=== PATIENT | female | born 1985 | race Caucasian/White ===

== ENCOUNTER 2016-12-13 06:28 | Emergency (ER) | payer OTHER ==
--- NOTE | 2016-12-13 06:59 | ED ORDER SUMMARY ---
..... Patient: GAEL LUI OrderSheet [facility] VisitID: [id number] [address] [place] [address] 31y, F Registration Date/Time: 12/13/2016 ORDER SHEET Weight: 77.1 kg Allergies: No Known Drug Allergy GENERAL ORDERS: MEDICATION ORDERS: Valium PO 5 mg (NOW) (06:56 12/13/2016 Michael ALFONSO) (7:00 [facility]) Percocet PO 5/325 mg 1 po (NOW) (06:56 12/13/2016 Michael ALFONSO) (7:00 [facility]) IV FLUIDS: ORDER SHEET NOTES: [Electronically signed by Deirdre Wheeler (07:05 12/13/2016)] [Electronically signed by Matt Foster MD (07:08 12/13/2016)] [Electronically locked/signed by Deirdre Wheeler (07:05 12/13/2016)]
--- NOTE | 2016-12-13 06:59 | ED CLINICAL REPORT ---
Clinical Report - Physicians/Mid Levels [facility] [address] [place] [address] 12/13/2016 6:29 Patient: GAEL MORFIN Time Seen: 06:47. Arrived- By private vehicle. Historian- patient. HISTORY OF PRESENT ILLNESS Chief Complaint: NECK PAIN. Onset- at 5 PM; Ms Morfin turned her neck at home and felt sudden pain and it is still present. It was abrupt in onset. It is described as being severe and in the area of the right side of the cervical spine and radiating (Radiates to head and R shoulder). The quality is noted to be "pain". No bladder dysfunction, bowel dysfunction, sensory loss or motor loss. Additional history - Much worse with neck and arm movement. Patient denies an injury. No other injury. Similar symptoms previously: Several times. ( Other episodes were milder). REVIEW OF SYSTEMS The patient has had a headache. No sore throat, cough, difficulty breathing, chest pain or abdominal pain. No nausea, vomiting, diarrhea or difficulty with urination. PAST HISTORY Tetanus UTD PCP: Jerry Glass Ops: Breast augmentation Hosp: Childbirth Illness: None. Medications: None. Allergies: No Known Drug Allergy. SOCIAL HISTORY Current every day smoker. ADDITIONAL NOTES The nursing notes have been reviewed. PHYSICAL EXAM Vital Signs: 12/13/2016 06:39 BP: 116/73. HR: 73. RR: 16. O2 saturation: 100%. Temp: 97.6 F. Appearance: Alert. Patient in moderate distress. Neck: Pain in the neck upon movement. Muscle spasm of the neck. No vertebral tenderness. Soft tissue tenderness (Especially R trapezius). CVS: Normal heart rate and rhythm. Heart sounds normal. Respiratory: No respiratory distress. Breath sounds normal. Abdomen: Normal inspection. Soft and nontender. Neuro: No motor deficit. No sensory deficit. Reflex exam: right biceps 2+, left biceps 2+, right brachioradialis 0, left brachioradialis 0, right Achilles 1+ and left Achilles 1+. PROGRESS AND PROCEDURES Course of Care: This is cervical muscle spasm. It is unlikely to be a cervical disk. There are no symptoms in the hands or forearms. CLINICAL IMPRESSION Cervical strain. INSTRUCTIONS Do not work for three days (may return sooner if able). Prescription Medications: Hydrocodone/APAP 5mg / 325mg: take 1-2 orally every 4 hours as needed for pain. Dispense twenty (20). No refill. Robaxin 750 mg: Take 2 orally every 6 hours as needed for muscle spasm. Dispense thirty (30). No refills. Substitution is permissible. Follow-up: Follow up with your doctor in five days if not better. Understanding of the discharge instructions verbalized by patient. (Electronically signed by Matt Foster MD 12/13/2016 7:08)
--- NOTE | 2016-12-13 06:59 | ED CLINICAL REPORT ---
Clinical Report - Physicians/Mid Levels [facility] [address] [place] [place] [address] 12/13/2016 6:29 Patient: GAEL MORFIN Time Seen: 06:47. Arrived- By private vehicle. Historian- patient. HISTORY OF PRESENT ILLNESS Chief Complaint: NECK PAIN. Onset- at 5 PM; Ms Morfin turned her neck at home and felt sudden pain and it is still present. It was abrupt in onset. It is described as being severe and in the area of the right side of the cervical spine and radiating (Radiates to head and R shoulder). The quality is noted to be "pain". No bladder dysfunction, bowel dysfunction, sensory loss or motor loss. Additional history - Much worse with neck and arm movement. Patient denies an injury. No other injury. Similar symptoms previously: Several times. ( Other episodes were milder). REVIEW OF SYSTEMS The patient has had a headache. No sore throat, cough, difficulty breathing, chest pain or abdominal pain. No nausea, vomiting, diarrhea or difficulty with urination. PAST HISTORY Tetanus UTD PCP: Jerry Glass Ops: Breast augmentation Hosp: Childbirth Illness: None. Medications: None. Allergies: No Known Drug Allergy. SOCIAL HISTORY Current every day smoker. ADDITIONAL NOTES The nursing notes have been reviewed. PHYSICAL EXAM Vital Signs: 12/13/2016 06:39 BP: 116/73. HR: 73. RR: 16. O2 saturation: 100%. Temp: 97.6 F. Appearance: Alert. Patient in moderate distress. Neck: Pain in the neck upon movement. Muscle spasm of the neck. No vertebral tenderness. Soft tissue tenderness (Especially R trapezius). CVS: Normal heart rate and rhythm. Heart sounds normal. Respiratory: No respiratory distress. Breath sounds normal. Abdomen: Normal inspection. Soft and nontender. Neuro: No motor deficit. No sensory deficit. Reflex exam: right biceps 2+, left biceps 2+, right brachioradialis 0, left brachioradialis 0, right Achilles 1+ and left Achilles 1+. PROGRESS AND PROCEDURES Course of Care: This is cervical muscle spasm. It is unlikely to be a cervical disk. There are no symptoms in the hands or forearms. CLINICAL IMPRESSION Cervical strain. INSTRUCTIONS Do not work for three days (may return sooner if able). Prescription Medications: Hydrocodone/APAP 5mg / 325mg: take 1-2 orally every 4 hours as needed for pain. Dispense twenty (20). No refill. Robaxin 750 mg: Take 2 orally every 6 hours as needed for muscle spasm. Dispense thirty (30). No refills. Substitution is permissible. Follow-up: Follow up with your doctor in five days if not better. Understanding of the discharge instructions verbalized by patient. (Electronically signed by Matt Foster MD 12/13/2016 7:08)
--- NOTE | 2016-12-13 06:59 | ED ORDER SUMMARY ---
..... Patient: GAEL LUI OrderSheet [facility] VisitID: [id number] [address] [place] [address] 31y, F Registration Date/Time: 12/13/2016 ORDER SHEET Weight: 77.1 kg Allergies: No Known Drug Allergy GENERAL ORDERS: MEDICATION ORDERS: Valium PO 5 mg (NOW) (06:56 12/13/2016 Michael ALFONSO) (7:00 [facility]) Percocet PO 5/325 mg 1 po (NOW) (06:56 12/13/2016 Michael ALFONSO) (7:00 [facility]) IV FLUIDS: ORDER SHEET NOTES: [Electronically signed by Deirdre Wheeler (07:05 12/13/2016)] [Electronically signed by Matt Foster MD (07:08 12/13/2016)] [Electronically locked/signed by Deirdre Wheeler (07:05 12/13/2016)]
--- NOTE | 2016-12-13 06:59 | ED NURSING NOTES ---
Clinical Report - Nurses [facility] [address] [place] [address] 12/13/2016 6:29 Patient: GAEL LUI TRIAGE Triage time 0635. Acuity: LEVEL 4. Chief Complaint: NECK PAIN. Alert. No acute distress. --06:44 Deirdre Wheeler 06:39 12/13/16. BP: 116/73. HR: 73. RR: 16. O2 saturation: 100%. Temp: 97.6 F. Pain level now 06/04. --06:44 Deirdre Wheeler. Weight: 77.1 kg. Height/Length: 65 inches. BMI: 28.3. --06:38 Deirdre Wheeler. Medications None. --06:41 Deirdre Wheeler. Allergies No Known Drug Allergy. --06:41 Deirdre Wheeler. History Arrived by private vehicle, and accompanied by family. This started last night. ( Pt with sudden onset right sided neck pain, [id number] yesterday, worse this am, sts hx of flare ups since spraining her neck at age 10). History of recent trauma- (21 years ago). 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 SOCIAL HX: Heavy tobacco smoker (cigarette)- less than 1 pack per day. --06:44 Deirdre Wheeler. PROBLEMS: Conjunctivitis. UTI - Urinary Tract Infection. Cellulitis. Back Pain. Animal Bite. Lifestyle / Substance Problems. Dysfunctional Uterine Bleeding. Pelvic Inflammatory Disease. STD - Sexually Transmitted Disease. --06:42 Deirdre Wheeler. ADDITIONAL SURGERIES: . Breast Augmentation. Dental Surgery. Dilatation & Curettage. --06:42 Deirdre Wheeler. Interventions ID band on patient. To treatment room. --06:44 Deirdre Wheeler. PHYSICAL ASSESSMENT Ambulatory to room. GENERAL / NEURO / PSYCH: Alert. Oriented X 4. Appears in pain and anxious. RESPIRATORY: Respirations not labored. Chest nontender. Breath sounds within normal limits. CVS: Normal heart rate and rhythm. Capillary refill less than 2 seconds. GI / : Abdomen soft and nontender. Bowel sounds within normal limits. EXTREMITIES: Sensation intact in extremities. ROM of extremities within normal limits. BACK: Normal inspection of the neck and back. Limited ROM of the neck. --06:50 Deirdre Wheeler. NURSING PROGRESS NOTES 07:00 12/13/2016 Valium (Diazepam) PO 5 mg given. Allergies verified, confirmed 5 rights and sedative warning given to the patient. --07:00 Deirdre Wheeler 07:00 12/13/2016 Percocet (Oxycodone-Acetaminophen) PO 5/325 mg Tablets 1 tab given. Allergies verified, confirmed 5 rights and sedative warning given to the patient. --07:00 Deirdre Wheeler. DISPOSITION / DISCHARGE Departure time: 704. Condition at departure: unchanged and stable. No learning barriers present. Discharge instructions provided and reviewed with the patient and family. Reviewed medication(s). Patient and family verbalized understanding. Written instructions provided in Finnish. The patient was discharged by the physician. She was discharged home and accompanied by spouse. She left the Emergency Department ambulatory and via private vehicle. Spouse driving. --07:05 Deirdre Wheeler. Locked/Released at 12/13/2016 7:05 by Deirdre Wheeler,
--- NOTE | 2016-12-13 06:59 | ED NURSING NOTES ---
Clinical Report - Nurses [facility] [address] [place] [address] 12/13/2016 6:29 Patient: GAEL LUI TRIAGE Triage time 0635. Acuity: LEVEL 4. Chief Complaint: NECK PAIN. Alert. No acute distress. --06:44 Deirdre Wheeler 06:39 12/13/16. BP: 116/73. HR: 73. RR: 16. O2 saturation: 100%. Temp: 97.6 F. Pain level now 06/04. --06:44 Deirdre Wheeler. Weight: 77.1 kg. Height/Length: 65 inches. BMI: 28.3. --06:38 Deirdre Wheeler. Medications None. --06:41 Deirdre Wheeler. Allergies No Known Drug Allergy. --06:41 Deirdre Wheeler. History Arrived by private vehicle, and accompanied by family. This started last night. ( Pt with sudden onset right sided neck pain, [address] yesterday, worse this am, sts hx of flare ups since spraining her neck at age 10). History of recent trauma- (21 years ago). 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 SOCIAL HX: Heavy tobacco smoker (cigarette)- less than 1 pack per day. --06:44 Deirdre Wheeler. PROBLEMS: Conjunctivitis. UTI - Urinary Tract Infection. Cellulitis. Back Pain. Animal Bite. Lifestyle / Substance Problems. Dysfunctional Uterine Bleeding. Pelvic Inflammatory Disease. STD - Sexually Transmitted Disease. --06:42 Deirdre Wheeler. ADDITIONAL SURGERIES: . Breast Augmentation. Dental Surgery. Dilatation & Curettage. --06:42 Deirdre Wheeler. Interventions ID band on patient. To treatment room. --06:44 Deirdre Wheeler. PHYSICAL ASSESSMENT Ambulatory to room. GENERAL / NEURO / PSYCH: Alert. Oriented X 4. Appears in pain and anxious. RESPIRATORY: Respirations not labored. Chest nontender. Breath sounds within normal limits. CVS: Normal heart rate and rhythm. Capillary refill less than 2 seconds. GI / : Abdomen soft and nontender. Bowel sounds within normal limits. EXTREMITIES: Sensation intact in extremities. ROM of extremities within normal limits. BACK: Normal inspection of the neck and back. Limited ROM of the neck. --06:50 Deirdre Wheeler. NURSING PROGRESS NOTES 07:00 12/13/2016 Valium (Diazepam) PO 5 mg given. Allergies verified, confirmed 5 rights and sedative warning given to the patient. --07:00 Deirdre Wheeler 07:00 12/13/2016 Percocet (Oxycodone-Acetaminophen) PO 5/325 mg Tablets 1 tab given. Allergies verified, confirmed 5 rights and sedative warning given to the patient. --07:00 Deirdre Wheeler. DISPOSITION / DISCHARGE Departure time: 704. Condition at departure: unchanged and stable. No learning barriers present. Discharge instructions provided and reviewed with the patient and family. Reviewed medication(s). Patient and family verbalized understanding. Written instructions provided in Albanian. The patient was discharged by the physician. She was discharged home and accompanied by spouse. She left the Emergency Department ambulatory and via private vehicle. Spouse driving. --07:05 Deirdre Wheeler. Locked/Released at 12/13/2016 7:05 by Deirdre Wheeler,
--- NOTE | 2016-12-13 07:08 | ED MAR SUMMARY ---
..... Medication Administration Record [facility] [address] [place] [address] Patient: GAEL LUI Visit ID: [id number] 31y, F Weight: 77.1 kg Height/Length: 65 in BMI: 28.3 ALLERGIES: No Known Drug Allergy Given 07:00 12/13/2016 Deirdre Wheeler, Medication Administered: VALIUM [PO] (DIAZEPAM), Dose: 5 mg PO. Medication Ordered: Valium PO 5 mg (NOW). Given 07:00 12/13/2016 Deirdre Wheeler, Medication Administered: PERCOCET [PO] (OXYCODONE-ACETAMINOPHEN), Dose: 1 tab 5/325 mg Tablets PO. Medication Ordered: Percocet PO 5/325 mg 1 po (NOW).
--- NOTE | 2016-12-13 07:08 | ED DISCHARGE INSTRUCTIONS ---
Patient: GAEL LUI General Instructions VisitID: [id number] [place] [address] 31y, F Registration Date/Time: 12/13/2016 Cervical strain. INSTRUCTIONS Do not work for three days (may return sooner if able). Prescription Medications: Hydrocodone/APAP 5mg / 325mg: take 1-2 orally every 4 hours as needed for pain. Dispense twenty (20). No refill. Robaxin 750 mg: Take 2 orally every 6 hours as needed for muscle spasm. Dispense thirty (30). No refills. Substitution is permissible. Follow-up: Follow up with your doctor in five days if not better. Understanding of the discharge instructions verbalized by patient. ADDITIONAL INFORMATION Neck Sprain Or Strain A sudden force that causes turning or bending of the neck (such as in a car accident) can stretch or tear muscles (strain) and ligaments (sprain) and cause neck pain. Sometimes neck pain occurs after a simple awkward movement. In either case, muscle spasm is commonly present and contributes to the pain. Unless you had a forceful physical injury (for example, a car accident or fall), X-rays are usually not ordered for the initial evaluation of neck pain. If pain continues and dose not respond to medical treatment, X-rays and other tests may be performed at a later time. Home care The following guidelines will help you care for your injury at home: You may feel more soreness and spasm the first few days after the injury. Reduce your activity level until symptoms begin to improve. When lying down, use a comfortable pillow that supports the head and keeps the spine in a neutral position. The position of the head should not be tilted forward or backward. Use ice packs (ice in a plastic bag, wrapped in a towel) to treat acute pain. Apply for 20 minutes every 24 hours during the first two days. Then, begin local heat (hot shower, hot bath or heating pad) andmassageto reduce muscle spasm. Some patients feel best alternating hot and cold treatments, or just staying with one method only. Do what feels the best to you and gives the most relief. You may use acetaminophen or ibuprofen to control pain, unless another pain medicine was prescribed.If you have chronic liver or kidney disease or ever had a stomach ulcer or GI bleeding, talk with your doctor before using these medicines. Follow-up care Follow up with your physician or this facility if your symptoms do not show signs of improvement. Physical therapy may be needed. If you had X-rays today, they didnt show any broken bones, breaks, or fractures. Sometimes fractures dont show up on the first X-ray. Bruises and sprains can sometimes hurt as much as a fracture. These injuries can take time to heal completely. If your symptoms dont improve or they get worse, talk with your doctor. You may need a repeat X-ray. When to seek medical care Get prompt medical attention if any of the following occur: Pain becomes worse or spreads into your arms Weakness or numbness in one or both arms Hydrocodone Bitartrate, Acetaminophen Oral tablet What is this medicine? ACETAMINOPHEN; HYDROCODONE (a set a DIMPLE indira fen; torrie droe KOE done) is a pain reliever. It is used to treat mild to moderate pain. How should I use this medicine? Take this medicine by mouth. Swallow it with a full glass of water. Follow the directions on the prescription label. If the medicine upsets your stomach, take the medicine with food or milk. Do not take more than you are told to take. Talk to your road roller operator regarding the use of this medicine in children. This medicine is not approved for use in children. What side effects may I notice from receiving this medicine? Side effects that you should report to your doctor or health respiratory care assistant as soon as possible: allergic reactions like skin rash, itching or hives, swelling of the face, lips, or tongue breathing problems confusion feeling faint or lightheaded, falls stomach pain yellowing of the eyes or skin Side effects that usually do not require medical attention (report to your doctor or health respiratory care assistant if they continue or are bothersome): nausea, vomiting stomach upset What may interact with this medicine? alcohol antihistamines isoniazid medicines for depression, anxiety, or psychotic disturbances medicines for sleep muscle relaxants naltrexone narcotic medicines (opiates) for pain phenobarbital ritonavir tramadol What if I miss a dose? If you miss a dose, take it as soon as you can. If it is almost time for your next dose, take only that dose. Do not take double or extra doses. Where should I keep my medicine? Keep out of the reach of children. This medicine can be abused. Keep your medicine in a safe place to protect it from theft. Do not share this medicine with anyone. Selling or giving away this medicine is dangerous and against the law. Store at room temperature between 15 and 30 degrees C (59 and 86 degrees F). Protect from light. Keep container tightly closed. Throw away any unused medicine after the expiration date. Discard unused medicine and used packaging carefully. Pets and children can be harmed if they find used or lost packages. What should I tell my health care provider before I take this medicine? They need to know if you have any of these conditions: brain tumor Crohn's disease, inflammatory bowel disease, or ulcerative colitis drink more than 3 alcohol-containing drinks per day drug abuse or addiction head injury heart or circulation problems kidney disease or problems going to the bathroom liver disease lung disease, asthma, or breathing problems an unusual or allergic reaction to acetaminophen, hydrocodone, other opioid analgesics, other medicines, foods, dyes, or preservatives or trying to get breast-feeding What should I watch for while using this medicine? Tell your doctor or health respiratory care assistant if your pain does not go away, if it gets worse, or if you have new or a different type of pain. You may develop tolerance to the medicine. Tolerance means that you will need a higher dose of the medicine for pain relief. Tolerance is normal and is expected if you take the medicine for a long time. Do not suddenly stop taking your medicine because you may develop a severe reaction. Your body becomes used to the medicine. This does NOT mean you are addicted. Addiction is a behavior related to getting and using a drug for a non-medical reason. If you have pain, you have a medical reason to take pain medicine. Your doctor will tell you how much medicine to take. If your doctor wants you to stop the medicine, the dose will be slowly lowered over time to avoid any side effects. You may get drowsy or dizzy when you first start taking the medicine or change doses. Do not drive, use machinery, or do anything that may be dangerous until you know how the medicine affects you. Stand or sit up slowly. There are different types of narcotic medicines (opiates) for pain. If you take more than one type at the same time, you may have more side effects. Give your health care provider a list of all medicines you use. Your doctor will tell you how much medicine to take. Do not take more medicine than directed. Call emergency for help if you have problems breathing. The medicine will cause constipation. Try to have a bowel movement at least every 2 to 3 days. If you do not have a bowel movement for 3 days, call your doctor or health respiratory care assistant. Too much acetaminophen can be very dangerous. Do not take Tylenol (acetaminophen) or medicines that contain acetaminophen with this medicine. Many non-prescription medicines contain acetaminophen. Always read the labels carefully. You have been given the following additional information: Neck Sprain/Strain Hydrocodone Bitartrate, Acetaminophen Oral tablet Do not work for three days (may return sooner if able). (Electronically signed by Matt Foster MD 12/13/2016 7:08)
--- NOTE | 2016-12-13 07:08 | ED MED RECONCILIATION SUMMARY ---
Patient: GAEL LUI Medication Reconciliation Report [facility] VisitID: [id number] [place] [address] 31y, F Registration Date/Time: 12/13/2016 Weight: 77.1 kg Height/Length: 65 in. BMI: 28.3 ALLERGIES: No Known Drug Allergy The patient's Home Medications are listed below: NONE. The source(s) of the original Home Medication information: Not obtained. The following Medications were given to the patient in the Emergency Department: Valium [PO] PO 5 mg, administered: 12/13/2016 7:00:00 AM Percocet [PO] PO 1 tab, administered: 12/13/2016 7:00:00 AM The following Medications were prescribed to the patient: Hydrocodone/APAP 5mg / 325mg: take 1-2 orally every 4 hours as needed for pain. Dispense twenty (20). No refill. -- Matt Foster MD Robaxin 750 mg: Take 2 orally every 6 hours as needed for muscle spasm. Dispense thirty (30). No refills. Substitution is permissible. -- Matt Foster MD
--- NOTE | 2016-12-13 07:08 | ED MED RECONCILIATION SUMMARY ---
Patient: GAEL LUI Medication Reconciliation Report [facility] VisitID: [id number] [place] [address] 31y, F Registration Date/Time: 12/13/2016 Weight: 77.1 kg Height/Length: 65 in. BMI: 28.3 ALLERGIES: No Known Drug Allergy The patient's Home Medications are listed below: NONE. The source(s) of the original Home Medication information: Not obtained. The following Medications were given to the patient in the Emergency Department: Valium [PO] PO 5 mg, administered: 12/13/2016 7:00:00 AM Percocet [PO] PO 1 tab, administered: 12/13/2016 7:00:00 AM The following Medications were prescribed to the patient: Hydrocodone/APAP 5mg / 325mg: take 1-2 orally every 4 hours as needed for pain. Dispense twenty (20). No refill. -- Matt Foster MD Robaxin 750 mg: Take 2 orally every 6 hours as needed for muscle spasm. Dispense thirty (30). No refills. Substitution is permissible. -- Matt Foster MD
--- NOTE | 2016-12-13 07:08 | ED MAR SUMMARY ---
..... Medication Administration Record [facility] [address] [place] [address] Patient: GAEL LUI Visit ID: [id number] 31y, F Weight: 77.1 kg Height/Length: 65 in BMI: 28.3 ALLERGIES: No Known Drug Allergy Given 07:00 12/13/2016 Deirdre Wheeler, Medication Administered: VALIUM [PO] (DIAZEPAM), Dose: 5 mg PO. Medication Ordered: Valium PO 5 mg (NOW). Given 07:00 12/13/2016 Deirdre Wheeler, Medication Administered: PERCOCET [PO] (OXYCODONE-ACETAMINOPHEN), Dose: 1 tab 5/325 mg Tablets PO. Medication Ordered: Percocet PO 5/325 mg 1 po (NOW).
== END 2016-12-13 07:05 | disposition home or self-care (01) ==
LOC: ED SRH 06:28
DX: S16.1XXA Strain of muscle, fascia and tendon at neck level, initial encounter (principal); F17.210 Nicotine dependence, cigarettes, uncomplicated; X50.0XXA Overexertion from strenuous movement or load, initial encounter; Y93.9 Activity, unspecified; Y92.009 Unspecified place in unspecified non-institutional (private) residence as the place of occurrence of the external cause; Y99.9 Unspecified external cause status